=== PATIENT | female | born 1985 | race Caucasian/White ===

== ENCOUNTER 2017-09-21 10:10 | Emergency (ER) | payer MEDICAID ==
[~2017-09-21] VITALS: Ht 165.1 cm; Wt 59.0 kg
[2017-09-21] MEDS ORDERED: KETOROLAC 15MG/ML VIAL IM ONE (12:30)
[2017-09-21 12:55] VITALS: BP 111/63
== END 2017-09-21 13:04 | disposition home or self-care (01) ==
LOC: ER 10:56
DX: M54.5 Low back pain (principal)
CPT/HCPCS: 96372; 99283; J1885

== ENCOUNTER 2017-11-09 19:27 | Emergency (ER) | payer MEDICAID ==
[~2017-11-09] VITALS: Ht 152.4 cm; Wt 71.0 kg
[2017-11-09] MEDS ORDERED: SODIUM CHLORIDE 0.9% 1,000 ML IV ONE (23:04)
[2017-11-09 23:32] LABS: BASOPHILS % 0.8 % (0.0-2.0); EOSINOPHILS % 1.3 % (0.0-5.0); HEMATOCRIT. 37.1 % (36.0-48.0); HEMOGLOBIN. 13.3 g/dL (12.0-16.0); LYMPHOCYTES % 24.7 % (20.0-50.0); MEAN CORPUSCULAR HEMOGLOBIN 31.5 pg (28.0-32.0); MEAN CORPUSCULAR VOLUME 87.8 fL (81.0-99.0); MEAN PLATELET VOLUME 8.7 fl (7.4-10.4); MONOCYTES % 6.3 % (2.0-8.0); NEUTROPHILS % 66.9 % (40.0-76.0); PLATELET 359 x1000/uL (130-400); RED BLOOD CELL COUNT 4.22 mill/uL (4.2-5.4); RED CELL DISTRIBUTION WIDTH 14.2 % (11.6-14.6)
[2017-11-09 23:38] LABS: CHLORIDE 106 mEq/L (98-107)
[2017-11-09 23:40] LABS: PROTHROMBIN TIME 10.2 sec (9.4-11.6)
[2017-11-10 00:22] LABS: CLARITY URINE CLEAR (CLEAR); COLOR URINE YELLOW (YELLOW); KETONES URINE NEGATIVE (NEGATIVE); LEUKOCYTE ESTERASE URINE 1+ (NEGATIVE); NITRITE URINE NEGATIVE (NEGATIVE); OCCULT BLOOD URINE NEGATIVE (NEGATIVE); PH URINE 5.5 (4.5-8.0); PROTEIN URINE NEGATIVE (NEGATIVE); UROBILINOGEN URINE 0.2 E.U./dL (0.2-1.0)
[2017-11-10] MEDS ORDERED: SODIUM CHLORIDE 0.9% 1,000 ML IV NR (01:34)
[2017-11-10] MEDS ORDERED: CEFTRIAXONE 1 G PREMIX 50 ML IV NR (03:00)
[2017-11-10 04:21] VITALS: BP 104/68
== END 2017-11-10 04:22 | disposition home or self-care (01) ==
LOC: ER 19:27
DX: A59.9 Trichomoniasis, unspecified (principal); K76.0 Fatty (change of) liver, not elsewhere classified; N39.0 Urinary tract infection, site not specified
CPT/HCPCS: 36415; 76700; 80053; 81001; 83690; 85025; 85610; 96361; 96365; 99285; J0696; J7030; Z7610

== ENCOUNTER 2018-05-03 23:59 | Emergency (ER) | payer MEDICAID ==
[~2018-05-03] VITALS: Ht 152.4 cm; Wt 68.0 kg
[2018-05-04 00:13] VITALS: BP 138/81
== END 2018-05-04 04:39 | disposition left against medical advice (07) ==
LOC: ER 05-04 04:39
DX: Z53.21 Procedure and treatment not carried out due to patient leaving prior to being seen by health care provider (principal)

== ENCOUNTER 2021-08-01 21:28 | Emergency (ER) | payer MEDICAID ==
[~2021-08-01] VITALS: Ht 152.4 cm; Wt 76.0 kg
[2021-08-01 21:46] VITALS: BP 108/69
== END 2021-08-02 01:05 | disposition home or self-care (01) ==
LOC: ER 21:28
DX: O98.513 Other viral diseases complicating pregnancy, third trimester (principal); R51.9 Headache, unspecified; Z20.822 Contact with and (suspected) exposure to COVID-19; Z3A.37 37 weeks gestation of pregnancy
CPT/HCPCS: 99283; C9803; U0003; U0005

== ENCOUNTER 2022-09-03 05:44 | Inpatient (IN) | payer MEDICAID ==
[~2022-09-03] VITALS: Ht 152.4 cm; Wt 78.0 kg
[2022-09-03] MEDS ORDERED: BUTORPHANOL TARTRATE 2 MG/ML VIAL IV PRN (08:30)
[2022-09-03] MEDS ORDERED: LIDOCAINE HCL 1% 20ML VIAL (Pyxis) INJ INFIL SCH (08:30)
[2022-09-03] MEDS ORDERED: NALOXONE HCL 0.4 MG/ML 1ML VIAL IM PRN (08:30)
[2022-09-03] MEDS ORDERED: METHYLERGONOVINE MALEATE 0.2 MG/ML IM PRN (08:30)
[2022-09-03] MEDS: LACTATED RINGERS 1,000 ML IV SCH ×2 (10:13→19:25)
[2022-09-03] MEDS: MISOPROSTOL 100MCG TABLET VG PRN ×2 (10:14→14:19)
[2022-09-03 10:16] LABS: BASOPHILS % 0.7 % (0.0-2.0); EOSINOPHILS % 0.4 % (0.0-5.0); HEMOGLOBIN. 14.7 g/dL (12.0-16.0); LYMPHOCYTES % 25.9 % (20.0-50.0); MEAN CORPUSCULAR HEMOGLOBIN 31.8 pg (28.0-32.0); MEAN CORPUSCULAR VOLUME 88.7 fL (81.0-99.0); MEAN PLATELET VOLUME 10.4 fl (7.4-10.4); MONOCYTES % 5.7 % (2.0-8.0); NEUTROPHILS % 67.3 % (40.0-76.0); PLATELET 302 x1000/uL (130-400); RED BLOOD CELL COUNT 4.62 mill/uL (4.2-5.4); RED CELL DISTRIBUTION WIDTH 14.1 % (11.6-14.6)
[2022-09-03 10:23] LABS: INR 0.9; PARTIAL THROMBOPLASTIN TIME 29.9 sec (23.4-31.0); PROTHROMBIN TIME 9.8 sec (9.6-11.0)
[2022-09-03 10:31] LABS: CLARITY URINE CLEAR (CLEAR); COLOR URINE YELLOW (YELLOW); KETONES URINE TRACE (NEGATIVE); LEUKOCYTE ESTERASE URINE TRACE (NEGATIVE); NITRITE URINE NEGATIVE (NEGATIVE); OCCULT BLOOD URINE NEGATIVE (NEGATIVE); PROTEIN URINE TRACE (NEGATIVE)
[2022-09-03 11:58] LABS: *AMPHETAMINES SCREEN URINE NEGATIVE (NEGATIVE); *BARBITURATES SCREEN URINE NEGATIVE (NEGATIVE); *BENZODIAZEPINES SCREEN URINE NEGATIVE (NEGATIVE); *COCAINE SCREEN URINE NEGATIVE (NEGATIVE); CANNABINOID URINE SCREEN NEGATIVE (NEGATIVE); METHADONE URINE SCREEN NEGATIVE (NEGATIVE); OPIATES URINE SCREEN NEGATIVE (NEGATIVE); PHENCYCLIDINE URINE SCREEN NEGATIVE (NEGATIVE)
[2022-09-03] MEDS: OXYTOCIN 30 UNITS/500ML NS PMX 500 ML IV SCH (21:26)
[2022-09-04] MEDS ORDERED: LANOLIN OINT 7GM TUBE TOP PRN (03:45)
[2022-09-04] MEDS ORDERED: IBUPROFEN 400MG TABLET PO PRN (03:45)
[2022-09-04] MEDS ORDERED: RHO(D) IMMUNE GLOBULIN 300 MCG/SYR IM PRN (03:45)
[2022-09-04] MEDS ORDERED: METHYLERGONOVINE MALEATE 0.2 MG/ML IM PRN (03:45)
[2022-09-04] MEDS ORDERED: OXYTOCIN 30 UNITS/500ML NS PMX 500 ML IV SCH (03:45)
[2022-09-04] MEDS: OXYTOCIN 30 UNITS/500ML NS PMX 500 ML IV SCH (04:03)
[2022-09-04] MEDS: IBUPROFEN 800MG TABLET PO PRN ×3 (04:05→20:46)
[2022-09-04 05:40] VITALS: BP 114/63
[2022-09-04 06:15] VITALS: BP 110/66
[2022-09-04 08:00] VITALS: BP 110/53
[2022-09-04] MEDS ORDERED: PRENATAL VIT/FE FUMARATE/FA TABLET PO SCH (09:00)
[2022-09-04 16:00] VITALS: BP 129/64
[2022-09-04 20:00] VITALS: BP 116/61
[2022-09-05 03:30] VITALS: BP 112/59
[2022-09-05] MEDS: IBUPROFEN 800MG TABLET PO PRN (06:46)
[2022-09-05] MEDS ORDERED: FERR325T6 MT (06:58)
[2022-09-05] MEDS ORDERED: IBUP-2030 PO (06:58)
[2022-09-05] MEDS ORDERED: MULT-1116 MT (06:58)
[2022-09-05 08:00] VITALS: BP 118/66
[2022-09-05 08:18] LABS: BASOPHILS % 0.4 % (0.0-2.0); EOSINOPHILS % 0.3 % (0.0-5.0); HEMATOCRIT. 36.1 % (36.0-48.0); HEMOGLOBIN. 12.5 g/dL (12.0-16.0); MEAN CORPUSCULAR HEMOGLOBIN 31.1 pg (28.0-32.0); MEAN CORPUSCULAR VOLUME 89.7 fL (81.0-99.0); MEAN PLATELET VOLUME 9.8 fl (7.4-10.4); MONOCYTES % 5.4 % (2.0-8.0); NEUTROPHILS % 67.9 % (40.0-76.0); PLATELET 279 x1000/uL (130-400); RED BLOOD CELL COUNT 4.02 mill/uL (4.2-5.4); RED CELL DISTRIBUTION WIDTH 14.4 % (11.6-14.6)
== END 2022-09-05 12:00 | disposition home or self-care (01) | DRG 560 ==
LOC: 8 EST LDRP 05:44 → OBSVTOIN 07:25 → 8EST 09-04 05:48
PROVIDERS: ADMIT Obstetrics & Gynecology; ATTEND Obstetrics & Gynecology
PROC: 10E0XZZ Delivery of Products of Conception, External Approach (ICD-10-PCS; principal; 2022-09-04)
DX: O48.0 Post-term pregnancy (principal); Z37.0 Single live birth; Z20.822 Contact with and (suspected) exposure to COVID-19; Z3A.40 40 weeks gestation of pregnancy
CPT/HCPCS: 36415; 76805; 76818; 80305; 81003; 85025; 86592; 86703; 86762; 86850; 86900; 87340; 87426; 99281; G0378; J0595; J7120; J2590

== ENCOUNTER 2023-11-24 23:23 | Emergency (ER) | payer MEDICAID ==
[~2023-11-24] VITALS: Ht 152.4 cm; Wt 74.0 kg
[~2023-11-24 23:23] MED LIST: FERR325T6 MT; IBUP-2030 PO; MULT-1116 MT
[2023-11-25 00:09] VITALS: BP 125/75; PULSE 86; RESP 18; TEMP 98.6; O2SAT 100
[2023-11-25 00:40] LABS: BASOPHILS % 0.8 % (0.0-2.0); HEMOGLOBIN. 14.7 g/dL (12.0-16.0); LYMPHOCYTES % 25.4 % (20.0-50.0); MEAN CORPUSCULAR HEMOGLOBIN 30.7 pg (28.0-32.0); MEAN CORPUSCULAR HGB CONC 35.1 g/dL (31.0-37.0); MEAN CORPUSCULAR VOLUME 87.2 fL (81.0-99.0); MEAN PLATELET VOLUME 8.4 fl (7.4-10.4); MONOCYTES % 5.4 % (2.0-8.0); NEUTROPHILS % 67.4 % (40.0-76.0); PLATELET 443 x1000/uL (130-400); RED BLOOD CELL COUNT 4.81 mill/uL (4.2-5.4); RED CELL DISTRIBUTION WIDTH 13.6 % (11.6-14.6); WHITE BLOOD COUNT 13.2 x1000/uL (4.5-11.0)
[2023-11-25 00:52] LABS: ALANINE AMINOTRANSFERASE 25 IU/L (10-49); ALBUMIN 4.3 g/dL (3.2-4.8); ASPARTATE AMINOTRANSFERASE 14 IU/L (<34); BILIRUBIN TOTAL 0.7 mg/dL (0.1-1.0); CALCIUM 9.3 mg/dL (8.7-10.4); CARBON DIOXIDE 27 mEq/L (21-32); CHLORIDE 106 mEq/L (98-107); CREATININE 0.6 mg/dL (0.6-1.0); GLUCOSE 102 mg/dL (70-105); POTASSIUM 3.9 mEq/L (3.5-5.1); PROTEIN TOTAL 6.8 g/dL (6.0-8.3); SODIUM 137 mEq/L (136-145); UREA NITROGEN BLOOD 9 mg/dL (9-23)
[2023-11-25 01:27] LABS: CLARITY URINE CLEAR (CLEAR); COLOR URINE YELLOW (YELLOW); GLUCOSE URINE NEGATIVE (NEGATIVE); KETONES URINE NEGATIVE (NEGATIVE); LEUKOCYTE ESTERASE URINE NEGATIVE (NEGATIVE); NITRITE URINE NEGATIVE (NEGATIVE); OCCULT BLOOD URINE NEGATIVE (NEGATIVE); PROTEIN URINE NEGATIVE (NEGATIVE); SPECIFIC GRAVITY URINE 1.008 (1.005-1.030); UROBILINOGEN URINE 0.2 E.U./dL (0.2-1.0)
== END 2023-11-25 08:44 | disposition left against medical advice (07) ==
LOC: ER 23:23
DX: R10.9 Unspecified abdominal pain (principal); Z53.21 Procedure and treatment not carried out due to patient leaving prior to being seen by health care provider
CPT/HCPCS: 36415; 80053; 81003; 81025; 85025; 99281

== ENCOUNTER 2024-08-15 13:41 | Emergency (ER) | payer MEDICAID ==
[~2024-08-15] VITALS: Ht 149.9 cm; Wt 75.0 kg
[2024-08-15 13:52] VITALS: O2SAT 100
[2024-08-15 14:31] VITALS: BP 126/78; PULSE 76; RESP 18; TEMP 36.61404; O2SAT 99
== END 2024-08-15 14:44 | disposition home or self-care (01) ==
LOC: ER 13:41
DX: O9A.211 Injury, poisoning and certain other consequences of external causes complicating pregnancy, first trimester (principal); F41.9 Anxiety disorder, unspecified; Z3A.01 Less than 8 weeks gestation of pregnancy; Z90.49 Acquired absence of other specified parts of digestive tract
CPT/HCPCS: 99282